=== PATIENT | female | born 2000 | race African-American/Black ===

== ENCOUNTER 2020-11-16 17:59 | Emergency (ER) | payer SELFPAY ==
--- NOTE | 2020-11-16 18:12 | ER Document Report ---
ED Medical Screen (RME) - General Chief Complaint: Leg Pain Stated Complaint: LEFT LEG,ANKLE PAIN Time Seen by Provider: 11/16/20 18:06 Primary Care Provider: CAPO ROLAND [PHYSICIAN ELECTRIC MOTOR ASSEMBLER AND TESTER] - Follow up as needed Mode of Arrival: Wheelchair Information source: Patient Notes: Otherwise healthy 20-year-old female presented to the emergency department with 6 falls in the last 2 days. Patient reports left leg feels numb and keeps giving out. She reports the numbness started in the knee region and has spread both down to the calf and as well as up into the thigh. She has never had this happen before. Today when she sat down to use the bathroom she was unable to get off of the toilet so had to slide herself down onto the ground. She denies any back pain. Denies any specific recent injury. Denies any recent illness or travel out of the country. She also reports left ankle pain from one of the falls. I have greeted and performed a rapid initial assessment of this patient. A comprehensive ED assessment and evaluation of the patient, analysis of test results and completion of the medical decision making process will be conducted by additional ED providers. I have specifically instructed the patient or family members with the patient to immediately return to any nursing staff should anything change in the patient's condition or with their chief complaint. Physical Exam - Vital signs Vitals: Temp Pulse Resp BP Pulse Ox 98.1 F 106 H 18 148/89 H 100 11/16/20 18:05 11/16/20 18:05 11/16/20 18:05 11/16/20 18:05 11/16/20 18:05 Course - Vital Signs Vital signs: Temp Pulse Resp BP Pulse Ox 98.5 F 94 16 128/66 H 99 11/16/20 22:03 11/16/20 22:03 11/16/20 22:03 11/16/20 22:03 11/16/20 22:03 - Laboratory Results Result Diagrams: 11/16/20 18:48 11/16/20 18:48 Laboratory Results Interpreted: 11/16/20 11/16/20 11/16/20 18:48 18:48 18:48 Hgb 8.8 L Hct 28.1 L MCV 63 L MCH 19.6 L MCHC 31.2 L RDW 20.6 H Chloride 109 H Urine Ketones TRACE H Urine Urobilinogen 4.0 H Urine Ascorbic Acid 20 H Doctor's Discharge - Discharge Referrals: CAPO ROLAND [PHYSICIAN ELECTRIC MOTOR ASSEMBLER AND TESTER] - Follow up as needed
--- NOTE | 2020-11-16 18:49 | RADIOLOGY REPORT (SQ) ---
EXAM DESCRIPTION: ANKLE LEFT COMPLETE IMAGES COMPLETED DATE/TIME: 11/16/2020 6:42 pm REASON FOR STUDY: fall, L ankle pain COMPARISON: None. NUMBER OF VIEWS: Three views. TECHNIQUE: AP, lateral, and oblique radiographic images acquired of the left ankle. LIMITATIONS: None. FINDINGS: MINERALIZATION: Normal. BONES: No acute fracture or dislocation. No worrisome bone lesions. JOINTS: No effusions. SOFT TISSUES: No soft tissue swelling. No foreign body. OTHER: No other significant finding. IMPRESSION: NEGATIVE STUDY OF THE LEFT ANKLE. NO RADIOGRAPHIC EVIDENCE OF ACUTE INJURY. TECHNICAL DOCUMENTATION: JOB ID: [id number] [employer]- All Rights Reserved Reading location - IP/workstation name: [email or web address]
[2020-11-16 19:19] LABS: ABSOLUTE EOSINOPHILS # (AUTO) 0.2 10^3/uL (0.0-0.6); ABSOLUTE NEUT (AUTO) 5.6 10^3/uL (1.7-8.2); BASOPHILS % (AUTO) 0.5 % (0-2); EOSINOPHILS % (AUTO) 1.6 % (0-6); HEMATOCRIT 28.1 % (36.0-47.0); HEMOGLOBIN 8.8 g/dL (12.0-15.5); LYMPHOCYTES % (AUTO) 30.3 % (13-45); MEAN CORPUSCULAR HEMOGLOBIN 19.6 pg (27.0-33.4); MEAN CORPUSCULAR HGB CONC 31.2 g/dL (32.0-36.0); MONOCYTES % (AUTO) 10.3 % (3-13); PLATELET COUNT 425 10^3/uL (150-450); RED BLOOD COUNT 4.49 10^6/uL (3.72-5.28); RED CELL DISTRIBUTION WIDTH 20.6 % (11.5-14.0); SEGMENTED NEUTROPHILS % (AUTO) 57.3 % (42-78); TOTAL CELLS COUNTED % (AUTO) 100 %; WHITE BLOOD COUNT 9.8 10^3/uL (4.0-10.5)
[2020-11-16 19:26] LABS: APPEARANCE,URINE SLIGHTLY-CLOUDY; BILIRUBIN,URINE NEGATIVE (NEGATIVE); COLOR,URINE YELLOW; GLUCOSE, URINE NEGATIVE (NEGATIVE); KETONES,URINE TRACE mg/dL (NEGATIVE); LEUKOCYTE ESTERASE,URINE NEGATIVE (NEGATIVE); NITRITE,URINE NEGATIVE (NEGATIVE); PROTEIN,URINE NEGATIVE (NEGATIVE); URINE SPECIFIC GRAVITY 1.031
[2020-11-16 19:30] LABS: ALBUMIN 4.3 g/dL (3.5-5.0); ALKALINE PHOSPHATASE 81 U/L (38-126); ANION GAP 10 (5-19); ASPARTATE AMINO TRANSFERASE 23 U/L (14-36); BILIRUBIN,DIRECT 0.2 mg/dL (0.0-0.4); BILIRUBIN,TOTAL 0.4 mg/dL (0.2-1.3); BLOOD UREA NITROGEN 10 mg/dL (7-20); CALCIUM 9.3 mg/dL (8.4-10.2); CARBON DIOXIDE 22 mmol/L (22-30); CHLORIDE 109 mmol/L (98-107); GLUCOSE 97 mg/dL (75-110); POTASSIUM 4.1 mmol/L (3.6-5.0)
[2020-11-16 20:02] LABS: MEAN CORPUSCULAR VOLUME 63 fl (80-97)
[2020-11-16 20:06] LABS: HYPOCHROMASIA SLIGHT
[2020-11-16 20:07] LABS: ANISOCYTOSIS 2+; BURR CELLS SLIGHT; OVALOCYTES 1+; PLATELET COMMENT ADEQUATE; TARGET CELLS SLIGHT
[2020-11-16 20:09] LABS: POIKILOCYTOSIS SLIGHT
--- NOTE | 2020-11-16 22:09 | ER Document Report ---
ED General - General Chief Complaint: Leg Pain Stated Complaint: LEFT LEG,ANKLE PAIN Time Seen by Provider: 11/16/20 18:06 Primary Care Provider: CAPO ROLAND [PHYSICIAN OFFICE MANAGER RECEPTIONIST] - Follow up as needed Mode of Arrival: Wheelchair - [facility] Notes: 20-year-old female presents with left leg numbness. Patient states that yesterday she developed numbness in her leg which traveled downwards, slightly painful as well. Numbness is in the front part of her thigh. Patient states that she has fallen about 6 times due to the numbness. She states that she has been ambulatory throughout the day. States that she cannot predict when she is going to fall, it just happens suddenly. States the last time she fell was when she had walked from her car to the ED lobby, then fell walking through the doors. She states there was an episode where her legs go numb and she could not get up off the toilet. She denies back pain. Past Medical History - General Information source: Patient - Social History Smoking Status: Never Smoker Frequency of alcohol use: Occasional Drug Abuse: None Family History: Reviewed & Not Pertinent Review of Systems - Review of Systems Constitutional: denies: Fever EENT: No symptoms reported Cardiovascular: No symptoms reported Respiratory: No symptoms reported Gastrointestinal: No symptoms reported Genitourinary: denies: Incontinence, Retention Musculoskeletal: denies: Back pain Skin: No symptoms reported Hematologic/Lymphatic: No symptoms reported Neurological/Psychological: Weakness, Numbness Physical Exam - Vital signs Vitals: Temp Pulse Resp BP Pulse Ox 98.1 F 106 H 18 148/89 H 100 11/16/20 18:05 11/16/20 18:05 11/16/20 18:05 11/16/20 18:05 11/16/20 18:05 - General General appearance: Appears well, Alert In distress: None - HEENT Head: Normocephalic, Atraumatic Extraocular movements intact: Yes Pupils: PERRL - Respiratory Breath sounds: Normal - Cardiovascular Rhythm: Regular Heart sounds: Normal auscultation Pulses: Normal: Dorsalis pedis - Abdominal Tenderness: Nontender - Back Back: No: Vertebra tenderness - Extremities General upper extremity: Normal ROM General lower extremity: Normal ROM. No: Edema Hip: Nontender - Left Thigh: Nontender - Left Knee: Nontender - Left. No: Drawer's test instability - Left Calf: Nontender - Left Ankle: Nontender - Left - Neurological Neuro grossly intact: Yes Cognition: Normal Orientation: AAOx4 Notes: Strength is 5/5 in the right leg, strength is 5/5 in the left leg. Patient is able to raise both legs off the bed. Sensation is intact, no saddle anesthesia. - Psychological Associated symptoms: Normal affect - Skin Skin Temperature: Warm Course - Re-evaluation Re-evalutation: 20-year-old female presents with left leg numbness/pain onset yesterday, reportedly has fallen multiple times, but is unable to predict when her leg will go numb. On exam patient is alert and well-appearing, she is afebrile, hemod ynamically stable. Her legs are warm and well perfused, palpable distal pulses. Patient has intact motor and sensory to both of her legs. There is no saddle anesthesia. No gross deformities. Patient had labs done through triage which was notable for a chronic appearing anemia, electrolytes within normal limits. She additionally had an MRI lumbar spine performed which is negative for acute finding. Unsure what to make of her reported numbness, we know that it is not an acute spinal compressive type pathology at this time. Question if there is some degree of conversion disorder as she is relatively calm regarding her symptoms. I encouraged her to follow-up with her primary care doctor for further work-up and evaluation, discussed potentially this could represent multiple sclerosis or other peripheral neuropathy. She verbalized understanding. Return precautions given, stable time of discharge. - Vital Signs Vital signs: Temp Pulse Resp BP Pulse Ox 98.1 F 100 16 134/72 H 100 11/16/20 23:48 11/16/20 23:48 11/16/20 23:48 11/16/20 23:48 11/16/20 23:48 - Laboratory Results Result Diagrams: 11/16/20 18:48 11/16/20 18:48 Laboratory Results Interpreted: 11/16/20 11/16/20 11/16/20 18:48 18:48 18:48 Hgb 8.8 L Hct 28.1 L MCV 63 L MCH 19.6 L MCHC 31.2 L RDW 20.6 H Chloride 109 H Urine Ketones TRACE H Urine Urobilinogen 4.0 H Urine Ascorbic Acid 20 H Critical Laboratory Results Reviewed: No Critical Results - Radiology Results Critical Radiology Results Reviewed: No Critical Results Discharge - Discharge Clinical Impression: Left leg paresthesias Disposition: HOME, SELF-CARE Additional Instructions: Please follow-up with your primary care doctor. As discussed, could potentially be worked up for other neurological conditions such as multiple sclerosis or other peripheral neuropathy. Can continue ibuprofen. Return to the emergency department for any concerning worsening symptoms. Referrals: CAPO ROLAND [PHYSICIAN OFFICE MANAGER RECEPTIONIST] - Follow up as needed
--- NOTE | 2020-11-16 22:34 | RADIOLOGY REPORT (SQ) ---
EXAM DESCRIPTION: MR LUMBAR SPINE WITHOUT THEN WITH IV CONTRAST COMPLETED DATE/TME: 11/16/2020 21:44 CLINICAL HISTORY: 20 years, Female, Left leg numbness/unable to bear wt/multiple falls COMPARISON: None. TECHNIQUE: 261 Images stored on PACS. LIMITATIONS: None. FINDINGS: 5 lumbar type vertebral bodies, for the purposes of this exam. Height and alignment is preserved. No suspicious marrow signal. Normal signal in the visualized spinal cord. The conus medullaris terminates appropriately. No focal enhancing abnormality. Extraspinal anatomic structures are grossly unremarkable. The disc spaces are maintained throughout. No disc bulge or protrusion. No central canal stenosis or significant neural foraminal compromise at any level. IMPRESSION: Unremarkable unenhanced and enhanced MRI lumbar spine copyright 2011 [employer]- All Rights Reserved
[2020-11-16] MEDS ORDERED: KETOROLAC TROMETHAMINE INJ/PF 30 MG/1 ML SDV IV ONE (23:08)
[2020-11-16 23:49] VITALS: BP 134/72
== END 2020-11-16 23:58 | disposition home or self-care (01) ==
LOC: ER 17:59
DX: R20.0 Anesthesia of skin (principal); R29.6 Repeated falls; M25.572 Pain in left ankle and joints of left foot; D64.9 Anemia, unspecified; R53.1 Weakness
CPT/HCPCS: 99285; 96374; 36415; 85025; 80053; 81001; 72158; 73610; A9576; J1885